=== PATIENT | female | born 1950 | race Caucasian/White ===

== ENCOUNTER 2018-02-04 06:42 | Day surgery (SDC) | payer MEDICARE ==
[2018-02-03 11:30] VITALS: BMI 38.6
[~2018-02-04 06:42] MED LIST: FLU VACC TS2017-18 (>65YR) 0.5 ML SYRINGE IM ONE
[2018-02-04] MEDS ORDERED: HYDROcodone/Acetaminophen 5/325 mg Tablet ONE (07:57)
[2018-02-04 08:21] VITALS: BP 159/67; TEMP 98.1
--- NOTE | 2018-02-04 10:05 | RAD ---
LUMBAR MYELOGRAM: History: Lumbar fusion. Radiculopathy. Comparison: None. 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 There are petra ateral transpedicular screws at L5 and S1. No perihardware lucency. There is anterolisthesis of L5 up on S1. There are radiopaque densities in the left upper quadrant, incompletely evaluated. Successful lumbar puncture for intrathecal contrast administration. A total of 10 cc of Isovue M200 c ontrast was administered intrathecally. Patient tolerated the procedure well. No immediate or post pr ocedure complications. Technique: Consent obtained for lumbar puncture for intrathecal contrast administration. Patient's back was eval uated. The L2-3 level was deemed appropriate. Skin was prepped and draped in sterile fashion. 1% Lido lucas, buffered with sodium bicarbonate used for local anesthesia. Under fluoroscopic guidance, a 22 gauge spinal needle was advanced into the CSF space. Via short tubing catheter, a total of 10 cc of c ontrast was administered intrathecally. Patient tolerated the procedure well. No immediate or post pr ocedure complication. IMPRESSION: Successful lumbar puncture for intrathecal contrast administration. Please refer to post myelogram CT for further detail. POS: [facility]
--- NOTE | 2018-02-04 10:31 | CT ---
POST MYELOGRAM LUMBAR SPINE CT: Date: 02/04/18 HISTORY: Lumbar radiculopathy. Lumbar fusion. COMPARISON: 12/21/13. TECHNIQUE: Post myelogram lumbar spine CT is performed in the axial plane. Sagittal and coronal reformatted imag es are submitted for interpretation. 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 Visualized solid organs are unremarkable. Lef t pelvic cyst is noted. Symmetric attenuation of the psoas muscles. There is vacuum disc phenomenon at L2-L3, L3-L4, L4-L5, and L5-S1. Bilateral transpedicular screws at L5 and S1. There is a fracture of the left screw at S1. The right screw at L5 appears to traverse th e superior aspect of the L5 vertebral body and appears to be within the right lateral aspect of the L 4-L5 disc space. There are bilateral pars defects at L5. There is 1.1 cm anterolisthesis of L5 upon S1. Conus medullaris terminates at the superior aspect of L1. T11-T12 and T12-L1: No high grade central canal stenosis. Neural foramina are patent. L1-L2: No high grade central canal stenosis. Neural foramina are patent. L2-L3: Vacuum disc phenomenon. Generalized disc bulge, ligamentum flavum thickening, and facet hypertrophy r esult in mild to moderate central canal stenosis. Mild bilateral foraminal narrowing. Inferior to the L2-L3 disc space in the right subarticular region, there is asymmetric soft tissue density, measurin g 0.7 cm. Inferior disc extrusion is favored. There is mass effect and obscuration of the traversing right L3 and L4 nerve roots. L3-L4: Vacuum disc phenomenon. Broad based disc bulge, ligamentum flavum thickening, and facet hypertrophy r esult in moderate central canal stenosis. Narrowing of both subarticular zones due to disc material. Partial obscuration of bilateral traversing L4 nerve roots. Right neural foramen is patent. Mild left foraminal narrowing. L4-L5: Vacuum dis phenomenon. Generalized disc bulge with a right subarticular component. Moderate stenosis. There is presumed mass effect and obscuration of the traversing right L5 nerve root. Moderate to sev ere right and mild left foraminal narrowing. L5-S1: Mild central canal stenosis. Moderate bilateral foraminal narrowing. IMPRESSION: 1. Lumbar fusion hardware as above. There is a fracture of the left S1 screw. The right L5 screw tra verses the superior end plate and is actually in the lateral aspect of the left L4-L5 disc space. 2. Bilateral pars defects at L5 with Grade I-II anterolisthesis of L5 upon S1. 3. Degenerative changes of lumbar spine as above. There are varying degrees of significant central c anal stenosis and foraminal narrowing as above. There is an inferior disc extrusion into the right venegas barticular zone at L2-L3. There is significant mass effect and obscuration of traversing right L3 and L4 nerve roots. POS: [facility]
== END 2018-02-04 10:20 | disposition home or self-care (01) ==
LOC: RAD 06:42
PROVIDERS: ATTEND Neurological Surgery
PROC: B02B1ZZ Computerized Tomography (CT Scan) of Spinal Cord using Low Osmolar Contrast (ICD-10-PCS; principal; 2018-02-04)
DX: M54.16 Radiculopathy, lumbar region (principal); I10 Essential (primary) hypertension; E87.6 Hypokalemia; E78.5 Hyperlipidemia, unspecified; K21.9 Gastro-esophageal reflux disease without esophagitis; D64.9 Anemia, unspecified; M19.90 Unspecified osteoarthritis, unspecified site; Z88.2 Allergy status to sulfonamides; Z88.5 Allergy status to narcotic agent; Z88.6 Allergy status to analgesic agent; Z88.8 Allergy status to other drugs, medicaments and biological substances; Z91.048 Other nonmedicinal substance allergy status; Z79.82 Long term (current) use of aspirin; Z79.899 Other long term (current) drug therapy; Z98.1 Arthrodesis status
CPT/HCPCS: 62304; 72132